=== PATIENT | male | born 1970 | race Caucasian/White ===

== ENCOUNTER → 2018-04-30 | Outpatient (CLI) | payer OTHER | LOC: FIMAGING 16:03 | PROVIDERS: ATTEND Orthopaedic Surgery Sports Medicine | DX: M25.561 Pain in right knee (principal); Z96.651 Presence of right artificial knee joint ==

== ENCOUNTER → 2018-09-24 | Outpatient (CLI) | payer OTHER | LOC: FIMAGING 11:03 | PROVIDERS: ATTEND Orthopaedic Surgery Sports Medicine | DX: M25.561 Pain in right knee (principal); Z96.651 Presence of right artificial knee joint; M25.861 Other specified joint disorders, right knee | CPT/HCPCS: 78315; A9503 ==